=== PATIENT | male | born 1960 | race Two or more races ===

== ENCOUNTER 2018-05-05 05:55 | Day surgery (SDC) | payer OTHER ==
[~2018-05-05] VITALS: Ht 172.7 cm; Wt 81.6 kg
[2018-05-05 07:15] LABS: Basophils # (auto) 0.1 uL; Basophils % (auto) 0.7 % (0.0-2.0); Eosinophils # (auto) 0.4 uL; Eosinophils % (auto) 4.3 % (0.0-7.0); Hematocrit 40.7 % (41.0-53.0); Hemoglobin 13.9 g/dL (13.5-17.5); Lymphocytes # (auto) 2.9 uL; Lymphocytes % (auto) 35.7 % (10.0-50.0); Mean Corpuscular Hgb Conc. 34.1 g/dL (32.0-36.0); Mean Corpuscular Volume 93.7 fL (80.0-100.0); Monocytes # (auto) 0.8 uL; Monocytes % (auto) 10.2 % (0.0-12.0); Neutrophils % (auto) 49.1 % (37.0-80.0); Nucleated Red Blood Cells % 0.1 %; Platelet Count (auto) 263 10^3/uL (140-450); Red Blood Cells 4.34 10^6/uL (4.5-5.90); Red Cell Distribution Width 13.4 % (11.8-14.3); White Blood Cell 8.2 10^3/uL (4.4-10.8)
[2018-05-05 07:38] LABS: INR 0.97 (0.9-1.15); Partial Thromboplastin Time 27.3 sec (23.78-33.04); Prothrombin Time 10.4 sec (9.27-12.13)
[2018-05-05] MEDS ORDERED: SODIUM CHLORIDE LOCK 10 ML ONE (08:21)
[2018-05-05] MEDS ORDERED: LIDOCAINE VISCOUS 2% 15ML UD ONE (08:21)
[2018-05-05] MEDS ORDERED: diphenhdrAMINE HCL 50 MG/1 ML VL ONE (08:22)
[2018-05-05] MEDS: MIDAZOLAM HCL 5 MG/ML-1ML VIAL ONE ×3 (08:51→09:03)
[2018-05-05] MEDS: fentaNYL CITRATE 100 MCG/2 ML VL ONE ×3 (08:51→09:03)
[2018-05-05 09:54] VITALS: BP 105/64
== END 2018-05-05 10:05 | disposition home or self-care (01) ==
LOC: GI 05:55
PROVIDERS: ATTEND Internal Medicine Gastroenterology
DX: Z12.11 Encounter for screening for malignant neoplasm of colon (principal); K63.5 Polyp of colon; K64.8 Other hemorrhoids; K29.50 Unspecified chronic gastritis without bleeding; K25.9 Gastric ulcer, unspecified as acute or chronic, without hemorrhage or perforation; Z90.49 Acquired absence of other specified parts of digestive tract; Z79.891 Long term (current) use of opiate analgesic
CPT/HCPCS: 36415; 43239; 45380; 45385; 85025; 85610; 85730; J1200; J2250; J3010; J7030; 99152; 99153